=== PATIENT | male | born 1990 | race Caucasian/White ===

== ENCOUNTER → 2021-11-06 09:17 | Outpatient (BNVA) | payer SELFPAY | PROVIDERS: PCP Nurse Practitioner Family; Visit Provider Physician Assistant | DX: Z02.79 Encounter for issue of other medical certificate (principal) ==

== ENCOUNTER 2023-07-10 14:02 | Outpatient (AMB) | payer OTHER, SELFPAY ==
--- NOTE | 2023-07-10 14:01 | MHC.OFFWIV ---
Intake Vital Signs 07/10/23 14:09 Height 5 ft 8 in Weight 88.451 kg BMI 29.6 BP 120/74 Blood Pressure Location Rt brachial Position Sitting Pulse 88 Pulse Source Pulse Oximeter Pulse Oximetry (%) 98 Oxygen Delivery Method Room Air Intake Visit Reasons: [employer] LFT pointer finger ground to the bone at home Intake Note: Patient here for slight cut on pointer finger that happened about 45 mins ago. Patient Tobacco Use Status: Current everyday Tobacco user Allergies From [facility] Allergy (Unknown, Uncoded 07/10/23 14:08) UNKNOWN Do you need a note to return to daycare/school/sports/work: No HPI HPI Comments History of Present Illness Details 1432 32-year-old male presents with a cut on his left hand pointer finger knuckle he cut himself with a metal grinder, 45 minutes prior to arrival. No numbness or tingling. He thinks it may be a deep cut however hard to tell because is bleeding a lot. Up-to-date on tetanus shot. Able to move finger without difficulty. Physical exam with very superficial laceration to right knuckle of 2nd finger. 2+ radial pulses equal bilateral full range of motion to all fingers. Normal sensation distally. Cap refill less than 2 seconds to bilateral upper extremity digits History and physical exam concerning for simple laceration without foreign bodies. Unlikely fracture, dislocation, neurovascular compromise Plan at this time repaired with Dermabond. No complications [facility] Social History Patient Tobacco Use Status: Current everyday Tobacco user Review of Systems Const Details: Constitutional : No Fever, No Chills, Cardiovascular : No Chest Pain, No SOB Respiratory : No Dyspnea Gastrointestinal : No abdominal pain Musculoskeletal : No Joint Swelling Skin : No rash, positive skin laceration Neuro : No Weakness, No Numbness Psych : No SI/HI All systems reviewed & are unremarkable except as noted in HPI and below Physical Exam Vital Signs: vss Appearance: Alert.? Oriented X3.? No acute distress.? Head: Normocephalic, atraumatic, no step-offs or deformities Eyes: Pupils equal, round and reactive to light.? Neck: Normal inspection.? Neck supple.? Skin: Skin warm and dry.? Normal skin color.? Normal skin turgor.? superficial laceration to right knuckle of 2nd finger. 2+ radial pulses equal bilateral full range of motion to all fingers. Normal sensation distally. Cap refill less than 2 seconds to bilateral upper extremity digits Extremities5/5 strength to bilateral upper and lower extremities Neuro: Oriented X 3.? No motor deficit.? No sensory deficit. CN 2-12 intact Assessment & Plan Assessment & Plan (1) Laceration of hand: Code(s): S61.419A - Laceration without foreign body of unspecified hand, initial encounter Plan Take your medications as prescribed. If you were prescribed antibiotics today, it is important that you take your medication to their entirety, do not skip any doses, do not finish them early. Follow-up with your primary care provider this week. Return to the emergency department with new or worsening symptoms. Such as fevers, chills, chest pain, shortness of breath, nausea, vomiting, dizziness, headache, vision changes, lethargy In case of emergency call 911 Coding Level of Care Code Est Pt Level 3 (86295) Diagnoses Laceration of hand S61.419A
[2023-07-10 14:09] VITALS: BP 120/74; PULSE 88; O2SAT 98; BMI 29.6
== END 2023-07-10 14:21 | disposition home or self-care (01) ==
LOC: HO.HMGWI 14:02
PROVIDERS: PCP Nurse Practitioner Family
DX: S61.419A Laceration without foreign body of unspecified hand, initial encounter (principal)
CPT/HCPCS: 99051; 99213

== ENCOUNTER 2023-08-03 09:23 | Outpatient (AMB) | payer OTHER, SELFPAY ==
--- NOTE | 2023-08-03 11:06 | MHC.OFFWIV ---
Intake Vital Signs 08/03/23 11:07 Height 5 ft 8 in Weight 210 lb BMI 31.9 BP 132/60 Blood Pressure Location Rt brachial Position Sitting Pulse 97 Pulse Source Pulse Oximeter Temp 98.6 F Temp Source Temporal Artery Scan Pulse Oximetry (%) 100 Oxygen Delivery Method Room Air Intake Visit Reasons: EP Cough [phone] Intake Note: Pt is here c/o bad cough for one week. Pt states his cough has gotten worse these last two days. Patient Tobacco Use Status: Current everyday Tobacco user Allergies From [facility]FT[facility] Allergy (Unknown, Uncoded 08/03/23 11:06) UNKNOWN Do you need a note to return to daycare/school/sports/work: Yes HPI EP Cough [phone] HPI Details This is a 32-year-old patient who presents today with a worsening cough over the last week. It is occasionally productive. Has had nasal congestion as well, however cough has been most problematic for him. Denies fever however reports he has had the chills. Denies known exposure to sick contacts. [facility] Social History Patient Tobacco Use Status: Current everyday Tobacco user Review of Systems Const All systems reviewed & are unremarkable except as noted in HPI and below Physical Exam Vital Signs: Last Vital Signs Temp 98.6 F 08/03/23 11:07 Pulse 97 08/03/23 11:07 BP 132/60 08/03/23 11:07 Pulse Ox 100 08/03/23 11:07 Oxygen Delivery Method Room Air 08/03/23 11:07 BMI result Body Mass Index 31.9 Const General: cooperative and no acute distress HEENT Head: Yes normal to inspection Ears: hearing grossly normal bilaterally General nose exam: Normal external nose present and Normal nasal mucous membranes and turbinates present Resp Effort & Inspection: normal respiratory effort and Actively coughing Quality: dry Auscultation: rhonchi upper bilaterally Cardio Palpation: normal PMI Rate: regular rate Rhythm: regular rhythm Skin General skin exam: no rashes or lesions noted Extrem General: Yes capillary refill normal and Yes no clubbing, cyanosis or edema Psych Appearance: grossly normal Mental Status: mental status grossly normal Speech and movement: Normal speech and movement present Assessment & Plan Assessment & Plan (1) Acute bronchitis: Code(s): J20.9 - Acute bronchitis, unspecified Qualifiers: Bronchitis organism: unspecified organism Qualified Code(s): J20.9 - Acute bronchitis, unspecified Plan: Will start patient on a short course of prednisone for his persistent cough, and also benzonatate. We reviewed indications, use, possible side effects of medications. Recommended ongoing conservative treatment with hydration, rest, Tylenol as needed p.r.n.. We discussed that if he does not improve with treatment, or if symptoms such as shortness of breath or fever develop, he should return to the clinic for further evaluation. All questions were answered and he verbalizes understanding and agrees to plan. Medications: New benzonatate 100 mg PO BID PRN 14 caps 0RF cough 7 days R05.9 - Cough, unspecified prednisone Take one tab with food twice a day. Avoid taking near bedtime. 20 mg PO BID 6 tabs 0RF 3 days J20.9 - Acute bronchitis, unspecified Coding Level of Care Code Est Pt Level 3 (96808) Diagnoses Acute bronchitis, unspecified organism J20.9 Bronchitis organism: unspecified organism
[2023-08-03 11:07] VITALS: BP 132/60; PULSE 97; TEMP 37; O2SAT 100; BMI 31.9
== END 2023-08-03 11:47 | disposition home or self-care (01) ==
PROVIDERS: Visit Provider Nurse Practitioner Family
DX: J20.9 Acute bronchitis, unspecified (principal)
CPT/HCPCS: 99213

== ENCOUNTER → 2023-09-28 14:36 | Outpatient (BNVA) | payer SELFPAY | PROVIDERS: Visit Provider Physician Assistant Medical | DX: Z02.79 Encounter for issue of other medical certificate (principal) ==